=== PATIENT | female | born 1990 | race Caucasian/White ===

== ENCOUNTER → 2017-02-18 | Outpatient (CLI) | payer BC ==
[~2017-02-18] MED LIST: COLACE 100100 MG/CAP PO; MOTRIN 600600 MG/TAB PO; NORCO 325 MG-51 TAB PO; ZOFRAN ODT4 MG PO
== END ==
LOC: COL.RAD 07:23
DX: K80.80 Other cholelithiasis without obstruction (principal); R10.11 Right upper quadrant pain; R19.7 Diarrhea, unspecified

== ENCOUNTER 2017-03-05 10:34 | Day surgery (SDC) | payer BC ==
[~2017-03-05] VITALS: Ht 170.2 cm; Wt 164.2 kg
[2017-03-05 10:51] VITALS: BP 153/115; PULSE 65; TEMP 98.5
[2017-03-05] MEDS ORDERED: ZOFRAN ODT4 MG PO (14:18)
[2017-03-05] MEDS ORDERED: NORCO 325 MG-51 TAB PO (14:19)
[2017-03-05] MEDS ORDERED: MOTRIN 600600 MG/TAB PO (14:19)
[2017-03-05] MEDS ORDERED: COLACE 100100 MG/CAP PO (14:20)
[2017-03-05 15:00] VITALS: BP 151/93; PULSE 68; TEMP 99
[2017-03-05 15:15] VITALS: BP 151/88; PULSE 59
[2017-03-05 15:30] VITALS: BP 153/84; PULSE 58
[2017-03-05 15:45] VITALS: BP 152/86; PULSE 67
[2017-03-05 16:00] VITALS: BP 158/89; PULSE 91
== END 2017-03-05 17:00 | disposition home or self-care (01) ==
LOC: SDCO 10:34
DX: K80.10 Calculus of gallbladder with chronic cholecystitis without obstruction (principal)
CPT/HCPCS: J0360; J0690; J0694; J1100; J1885; J2405; J2704; J2710; J3010; J7120; Q9967